=== PATIENT | male | born 1950 | race Caucasian/White ===

== ENCOUNTER 2023-05-20 | Emergency (ER) | payer OTHER ==
[~2023-05-20] VITALS: Ht 188 cm; Wt 108.9 kg
[2023-05-20] MEDS ORDERED: IPRATROPIUM NEB FS 0.5 MG/2.5 ML AMPUL.NEB ONE (00:37)
[2023-05-20] MEDS ORDERED: ALBUTEROL FS 2.5 MG/0.5 ML VIAL.NEB ONE (00:37)
[2023-05-20] MEDS ORDERED: diphenhydrAMINE HCL 50 MG/ML VIAL ONE (00:39)
[2023-05-20] MEDS ORDERED: methylPREDNISolone SOD SUCC 125 MG/2ML VIAL ONE (00:39)
[2023-05-20] MEDS ORDERED: FAMOTIDINE/PF INJ 20 MG/2 ML VIAL IV ONE ×2 (00:39→01:00)
[2023-05-20 00:41] VITALS: O2SAT 92
[2023-05-20 00:51] VITALS: O2SAT 97
[2023-05-20] MEDS ORDERED: diphenhydrAMINE HCL 50 MG/ML VIAL IV ONE (01:00)
[2023-05-20] MEDS ORDERED: ALBUTEROL FS 2.5 MG/0.5 ML VIAL.NEB NEB ONE (01:00)
[2023-05-20] MEDS ORDERED: IPRATROPIUM NEB FS 0.5 MG/2.5 ML AMPUL.NEB NEB ONE (01:00)
[2023-05-20] MEDS ORDERED: methylPREDNISolone SOD SUCC 125 MG/2ML VIAL IV ONE (01:00)
[2023-05-20 01:34] LABS: BASOPHILS % (AUTO) 0.1 % (0.0-2.0); HEMATOCRIT 48 % (39-51); HEMOGLOBIN 16.2 g/dL (13.5-17.5); LYMPHOCYTES # (AUTO) 1.3 K/uL (0.8-4.8); LYMPHOCYTES % (AUTO) 14.4 % (20.0-44.0); MEAN CORPUSCULAR HEMOGLOBIN 32 PG (26.0-33.0); MEAN CORPUSCULAR HGB CONC 34 g/dl (31.0-36.0); MEAN CORPUSCULAR VOLUME 95 fL (80-96); MONOCYTES # (AUTO) 0.3 K/uL (0.1-1.30); MONOCYTES % (AUTO) 3.6 % (2.0-12.0); NEUTROPHILS # (AUTO) 7.4 K/uL (1.8-8.9); NEUTROPHILS % (AUTO) 81.9 % (43.0-81.0); PLATELET COUNT (AUTO) 277 K/uL (150-450); RED BLOOD CELL COUNT(AUTO) 5.03 MIL/uL (4.5-6.0); RED CELL DISTRIBUTION WIDTH 13.4 % (11.5-15.0)
[2023-05-20 01:56] LABS: ALANINE AMINOTRANSFERASE 30 U/L (12-78); ALKALINE PHOSPHATASE 44 U/L (46-116); ASPARTATE AMINOTRANSFERASE 20 U/L (15-37); BILIRUBIN,DIRECT 0.4 mg/dL (0.0-0.2); BILIRUBIN,TOTAL 1.6 mg/dL (0.2-1.0); CALCIUM, SERUM 8.8 mg/dL (8.5-10.1); CARBON DIOXIDE 22 mmol/L (21-32); CHLORIDE 88 mmol/L (98-107); CREATININE 1.3 mg/dL (0.6-1.3); GLUCOSE 170 mg/dL (74-106); POTASSIUM 3.4 mmol/L (3.5-5.1); SODIUM SERUM 123 mmol/L (136-145); TOTAL PROTEIN, SERUM 5.8 g/dL (6.4-8.2); UREA NITROGEN, BLOOD 19 mg/dL (7-18)
[2023-05-20 05:09] VITALS: BP 121/72; TEMP 98.6; O2SAT 96
== END 2023-05-20 05:09 | disposition home or self-care (01) ==
LOC: ER 00:28
DX: L50.9 Urticaria, unspecified (principal); R06.2 Wheezing; I10 Essential (primary) hypertension
CPT/HCPCS: 99285; 96374; 71045; 96375; 93005; 85025; 80048; 80076; 36415; 84484 ×2; 94640; J1200; J3490; J2930